=== PATIENT | male | born 1990 | race Caucasian/White ===

== ENCOUNTER 2019-02-15 11:17 | Emergency (ER) | payer OTHER ==
[2019-02-15] MEDS ORDERED: KETOROLAC TROMETHAMINE INJ/PF 30 MG/1 ML SDV IV ONE (11:49)
[2019-02-15] MEDS ORDERED: DIPHENHYDRAMINE HCL 50 MG/ML VIAL IV ONE (11:50)
[2019-02-15] MEDS ORDERED: NORMAL SALINE 1000 ML 1,000 ML IV ONE (11:50)
--- NOTE | 2019-02-15 11:51 | ER Document Report ---
ED Medical Screen (RME) - General Chief Complaint: Headache Stated Complaint: HEAD PRESSURE Time Seen by Provider: 02/15/19 11:47 Mode of Arrival: Ambulatory Information source: Patient Notes: Patient is a 29-year-old male presented to the emergency department chief complaint of headache that is been ongoing for 1 week. Patient reports headache is on his left side of his head. He states that headache is been associated with elevated blood pressure. He denies any photophobia, phonophobia or nausea. Patient appears well, nontoxic and neurological exam is unremarkable. I have greeted and performed a rapid initial assessment of this patient. A comprehensive ED assessment and evaluation of the patient, analysis of test results and completion of the medical decision making process will be conducted by additional ED providers. I have specifically instructed the patient or family members with the patient to immediately return to any nursing staff should anything change in the patient's condition or with their chief complaint. This medical record was dictated with voice recognizing software. There may be grammatical, syntax errors that are unintended. TRAVEL OUTSIDE OF THE [place] IN LAST 30 DAYS: No - Related Data Allergies/Adverse Reactions: No Known Allergies Allergy (Verified 02/15/19 11:37) Past Medical History - Social History Chew tobacco use (# tins/day): Yes Frequency of alcohol use: Social Drug Abuse: None Physical Exam - Vital signs Vitals: Temp Pulse Resp BP Pulse Ox 98 F 74 16 180/91 H 99 02/15/19 11:22 02/15/19 11:22 02/15/19 11:22 02/15/19 11:22 02/15/19 11:22 Course - Vital Signs Vital signs: Temp Pulse Resp BP Pulse Ox 98 F 74 16 180/91 H 99 02/15/19 11:22 02/15/19 11:22 02/15/19 11:22 02/15/19 11:22 02/15/19 11:22
[2019-02-15] MEDS ORDERED: MORPHINE SULFATE 10 MG/ML INJ IV ONE (15:58)
[2019-02-15] MEDS ORDERED: CLONIDINE HCL 0.2 MG TABLET PO ONE (16:00)
--- NOTE | 2019-02-15 16:07 | ER Document Report ---
ED Headache - General Chief Complaint: Headache Stated Complaint: HEAD PRESSURE Time Seen by Provider: 02/15/19 11:47 Mode of Arrival: Ambulatory Information source: Patient TRAVEL OUTSIDE OF THE [place] IN LAST 30 DAYS: No - HPI Patient complains to provider of: Headache - Pt. with c/o R sided MIR and facial pain for the past week. Denies photophobia, N,V. Not the worst MIR of his life - Related Data Allergies/Adverse Reactions: No Known Allergies Allergy (Verified 02/15/19 11:37) Past Medical History - General Information source: Patient - Social History Smoking Status: Never Smoker Chew tobacco use (# tins/day): Yes Frequency of alcohol use: Social Drug Abuse: None Family History: None Patient has suicidal ideation: No Patient has homicidal ideation: No Review of Systems - Review of Systems Constitutional: No symptoms reported EENT: No symptoms reported Cardiovascular: No symptoms reported Respiratory: No symptoms reported Gastrointestinal: No symptoms reported Musculoskeletal: No symptoms reported Neurological/Psychological: See HPI, Headaches -: Yes All other systems reviewed and negative Physical Exam - Vital signs Vitals: Temp Pulse Resp BP Pulse Ox 98 F 74 16 180/91 H 99 02/15/19 11:22 02/15/19 11:22 02/15/19 11:22 02/15/19 11:22 02/15/19 11:22 - General General appearance: Appears well In distress: None - HEENT Head: Normocephalic Pupils: PERRL Sinus: Tenderness - there is min TTP of the R frontal and maxillary sinus. Pharynx: Normal Neck: Normal - Respiratory Respiratory status: No respiratory distress Breath sounds: Normal - Cardiovascular Rhythm: Regular Heart sounds: Normal auscultation Murmur: No - Abdominal Inspection: Normal Tenderness: Nontender - Extremities General upper extremity: Normal inspection General lower extremity: Normal inspection - Neurological Neuro grossly intact: Yes Cognition: Normal Orientation: AAOx4 Speech: Normal Cranial nerves: Normal Motor strength normal: LUE, RUE, LLE, RLE Sensory: Normal Course - Re-evaluation Re-evalutation: 02/15/19 17:15 Pt feels much better at time of d/c -- MIR essentially relieved. Expressed desire to go home with - Vital Signs Vital signs: Temp Pulse Resp BP Pulse Ox 98 F 74 16 180/91 H 99 02/15/19 11:22 02/15/19 11:22 02/15/19 11:22 02/15/19 11:22 02/15/19 11:22 - Diagnostic Test Radiology reviewed: Reports reviewed - ct- neg Discharge - Discharge Clinical Impression: Headache Qualifiers: Headache type: unspecified Headache chronicity pattern: acute headache Intractability: not intractable Qualified Code(s): R51 - Headache Sinusitis Qualifiers: Sinusitis location: frontal Chronicity: unspecified Qualified Code(s): J32.1 - Chronic frontal sinusitis Condition: Stable Disposition: HOME, SELF-CARE Instructions: Oral Narcotic Medication ([facility]), Headache ([facility]) Additional Instructions: rest, take meds as prescribed, return if worse Prescriptions: Cephalexin Monohydrate [Keflex 500 mg Capsule] 500 mg PO QID PRN #14 capsule PRN Reason: Tramadol HCl [Ultram] 50 mg PO BID #14 tablet Referrals: CHRISTOPH ANTOINE MD [ACTIVE STAFF] - Follow up as needed
[2019-02-15 17:34] VITALS: BP 131/45
--- NOTE | 2019-02-16 08:57 | RADIOLOGY REPORT (SQ) ---
EXAM DESCRIPTION: CT HEAD WITHOUT COMPLETED DATE/TIME: 02/15/2019 4:21 pm REASON FOR STUDY: MIR COMPARISON: None. TECHNIQUE: Axial images acquired through the brain without intravenous contrast. Images reviewed wi th bone, brain and subdural windows. Additional sagittal and coronal reconstructions were generated. Images stored on PACS. All CT scanners at this facility use dose modulation, iterative reconstruction, and/or weight based d osing when appropriate to reduce radiation dose to as low as reasonably achievable (ALARA). [facility]: Dose Right [facility]: CareDose [facility]: Dose Right [facility]: Teradose 4D [facility]: ChemiSense RADIATION DOSE: 53 mGy. LIMITATIONS: None. FINDINGS: VENTRICLES: Normal size and contour. CEREBRUM: No masses. No hemorrhage. No midline shift. No evidence for acute infarction. Normal gra y/white matter differentiation. No areas of low density in the white matter. CEREBELLUM: No masses. No hemorrhage. No alteration of density. No evidence for acute infarction. EXTRAAXIAL SPACES: No fluid collections. No masses. ORBITS AND GLOBE: No intra- or extraconal masses. Normal contour of globe without masses. CALVARIUM: No fracture. PARANASAL SINUSES: No fluid or mucosal thickening. SOFT TISSUES: No mass or hematoma. OTHER: Preliminary report provided to the ER by Dr. Camilo. IMPRESSION: NORMAL BRAIN CT WITHOUT CONTRAST. EVIDENCE OF ACUTE STROKE: NO. COMMENT: Quality ID # [id number]: Final reports with documentation of one or more dose reduction techniques (e.g., Automated exposure control, adjustment of the mA and/or kV according to patient size, use of iterative reconstruction technique) TECHNICAL DOCUMENTATION: JOB ID: [id number] [employer]- All Rights Reserved Reading location - IP[facility]workstation name: [email or web address]
== END 2019-02-15 17:30 | disposition home or self-care (01) ==
LOC: ER 11:17
DX: J32.1 Chronic frontal sinusitis (principal); R51 Headache
CPT/HCPCS: 99284; 96361; 96374; 96375; 70450; J1200; J1885; J2270; J7030